=== PATIENT | female | born 1955 | race Caucasian/White ===

== ENCOUNTER 2021-02-03 19:14 | Emergency (ER) | payer MEDICARE, MEDICAID ==
[~2021-02-03] VITALS: Ht 162.6 cm; Wt 79.0 kg
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
[2021-02-03 22:00] VITALS: BP 146/88
[2021-02-03] MEDS ORDERED: IBUPROFEN 200 MG TABLET. PO ONE (22:00)
== END 2021-02-03 22:00 | disposition home or self-care (01) ==
LOC: ER 19:14
DX: M79.644 Pain in right finger(s) (principal); M79.671 Pain in right foot; M79.672 Pain in left foot; Z59.00 Homelessness unspecified; F31.9 Bipolar disorder, unspecified; I10 Essential (primary) hypertension
CPT/HCPCS: 99283